=== PATIENT | male | born 1975 | race Caucasian/White ===

== ENCOUNTER 2022-09-23 19:08 | Emergency (ER) | payer OTHER ==
[2022-09-23 19:23] VITALS: BP 163/95; PULSE 96; RESP 18; TEMP 99.8; BMI 34.4
[2022-09-23] MEDS ORDERED: KETOROLAC TROMETHAMINE 30 MG/1 ML VIAL IM ONE (19:58)
[2022-09-23] MEDS ORDERED: KETOROLAC TROMETHAMINE 30 MG/1 ML VIAL ONE (20:13)
== END 2022-09-23 20:36 | disposition home or self-care (01) ==
LOC: JER 19:08 → JERFT 19:08
PROC: 3E0233Z Introduction of Anti-inflammatory into Muscle, Percutaneous Approach (ICD-10-PCS; principal; 2022-09-23)
DX: M25.562 Pain in left knee (principal); W18.30XA Fall on same level, unspecified, initial encounter; Y93.83 Activity, rough housing and horseplay
CPT/HCPCS: 73562-TC-LT-FY; 99284-25

== ENCOUNTER 2022-10-29 16:51 | Emergency (ER) | payer OTHER ==
[2022-10-29 17:21] VITALS: BP 156/86; PULSE 83; RESP 16; TEMP 97.9; BMI 35.2
[2022-10-29] MEDS ORDERED: KETOROLAC TROMETHAMINE 15 MG/ML VIAL IVPUSH ONE (18:02)
[2022-10-29] MEDS ORDERED: KETOROLAC TROMETHAMINE 15 MG/ML VIAL ONE (18:10)
[2022-10-29 19:20] LABS: BASO % 0.4 % (0-2.0); EOS % 1.2 % (0-4.5); HEMATOCRIT 39.9 % (35.4-49); HEMOGLOBIN 13.5 GM/dL (11.7-16.9); LYMPH % 33.5 % (8-40); MCH 30.4 pg (25.7-33.7); MEAN CELL VOLUME 89.7 fl (80-96); MEAN PLT VOLUME 8.8 fl (7.5-11.1); NEUT % 58.9 % (42.8-82.8); PLATELET COUNT 243 10^3/uL (134-434); RBC 4.45 M/mm3 (4.00-5.60); WHITE BLOOD COUNT 7.1 K/mm3 (4.0-10.0)
[2022-10-29 19:31] LABS: CHLORIDE 107 mmol/L (98-107); SODIUM 141 mmol/L (136-145)
[2022-10-29 19:33] LABS: CALCIUM 9.1 mg/dL (8.5-10.1)
[2022-10-29 19:34] LABS: ALBUMIN 4.1 g/dl (3.4-5.0); ANION GAP 4 MMOL/L (8-16); BLOOD UREA NITROGEN 17.5 mg/dL (7-18); CO2 31 mmol/L (21-32); GLUCOSE,RANDOM 112 mg/dL (74-106)
[2022-10-29 19:36] LABS: URIC ACID 5.9 mg/dL (2.6-7.2)
[2022-10-29 19:37] LABS: CREATININE 0.8 mg/dL (0.55-1.3); SGOT/AST 21 U/L (15-37); SGPT/ALT 44 U/L (13-61)
[2022-10-29 19:38] LABS: BILIRUBIN,TOTAL 0.2 mg/dL (0.2-1); TOT PROT 7.6 g/dl (6.4-8.2)
[2022-10-29 19:40] LABS: ALK PHOS 53 U/L (45-117)
[2022-10-29 20:07] LABS: ERYTHROCYTE SEDIMENTATION RATE 7 mm/hr (0-10)
== END 2022-10-29 20:47 | disposition home or self-care (01) ==
LOC: JERFT 16:51
PROC: 3E0333Z Introduction of Anti-inflammatory into Peripheral Vein, Percutaneous Approach (ICD-10-PCS; principal; 2022-10-29)
DX: M79.642 Pain in left hand (principal); R22.32 Localized swelling, mass and lump, left upper limb
CPT/HCPCS: 36415; 73130-TC-LT-FY; 80053; 84550; 85025; 85651; 86140; 99284-25